=== PATIENT | female | born 1995 | race Caucasian/White ===

== ENCOUNTER 2018-04-13 12:38 | Outpatient (CLI) | payer OTHER ==
--- NOTE | 2018-04-13 14:03 | RAD ---
LUMBAR SPINE FOUR VIEWS: History: Low back pain. FINDINGS/IMPRESSION: There are pars articularis defects with grade I anterolisthesis of L5 over S1. There is minimal worse mabel of anterolisthesis of L5 over S1 on extension compared to the flexion and neutral images. POS: ANALISA
== END 2018-04-13 12:39 | disposition home or self-care (01) ==
LOC: SCSRAD 12:38
PROVIDERS: ATTEND Family Medicine
DX: M54.16 Radiculopathy, lumbar region (principal); M43.17 Spondylolisthesis, lumbosacral region
CPT/HCPCS: 72110